=== PATIENT | male | born 1985 | race Asian ===

== ENCOUNTER 2018-10-28 03:03 | Emergency (ER) | payer SELFPAY ==
[~2018-10-28] VITALS: Ht 180.3 cm; Wt 81.6 kg
[2018-10-28 03:24] VITALS: BP 122/79
[2018-10-28] MEDS ORDERED: TETANUS-DIPTH-ACEL PERTUSSIS 0.5ML SYRG IM ONE (06:45)
[2018-10-28] MEDS ORDERED: LIDOCAINE 1% HCL (LOCAL ANESTH.) INJ 20ML MDV IJ ONE (06:45)
[2018-10-28] MEDS ORDERED: cefTRIAXone SOD 1,000 MG VL IM ONE (07:45)
== END 2018-10-28 08:19 | disposition home or self-care (01) ==
LOC: ER 03:03
DX: S61.412A Laceration without foreign body of left hand, initial encounter (principal); W54.0XXA Bitten by dog, initial encounter; Y93.89 Activity, other specified; Y99.8 Other external cause status; Y92.89 Other specified places as the place of occurrence of the external cause
CPT/HCPCS: 12002; 73130; 96372; 99283; J0696; J2001; 90471